=== PATIENT | female | born 1935 | race Caucasian/White ===

== ENCOUNTER 2019-01-17 09:24 | Inpatient (IN) ==
[2019-01-17] MEDS ORDERED: NS 1,000 ML IV ONE (10:00)
[2019-01-17] MEDS ORDERED: BENADRYL IV ONE (10:02)
[2019-01-17] MEDS ORDERED: CARDIZEM IV ONE (10:29)
[2019-01-17 10:39] LABS: URINE SOURCE CATH
[2019-01-17 10:45] LABS: BILIRUBIN URINE NEGATIVE (NEGATIVE); BLOOD URINE NEGATIVE (NEGATIVE); COLOR YELLOW; GLUCOSE URINE NEGATIVE (NEGATIVE); KETONE URINE NEGATIVE (NEGATIVE); LEUKOCYTES URINE NEGATIVE (NEGATIVE); NITRITE URINE NEGATIVE (NEGATIVE); PH URINE 5.5; PROTEIN URINE TRACE mg/dL (NEGATIVE); SP GRAVITY URINE 1.012; TURBIDITY URINE CLEAR (CLEAR); UROBILINOGEN URINE NORMAL (NORMAL)
[2019-01-17 10:46] LABS: BASO# 0.01 X1000 (0.0-0.2); BASO% 0.2 % (0.0-0.8); EOS# 0.08 X1000 (0.0-0.7); EOS% 1.2 % (0.0-10.0); HEMOGLOBIN 12.9 g/dL (12.0-16.0); IMM GRAN# 0.03 X1000 (0.0-0.04); IMM GRAN% 0.5 % (0.0-0.5); LYMPH# 1.75 X1000 (1.2-3.4); LYMPH% 26.9 % (20.5-51.1); MCH 29.4 PG (27-31); MCHC 33.1 g/dL (33-37); MCV 88.8 FL (81-99); MONO# 0.55 X1000 (0.11-0.59); MONO% 8.4 % (1.7-9.3); MPV 10.4 FL (7.4-10.4); NEUT# 4.09 X1000 (1.4-6.5); NEUT% 62.8 % (42.2-75.2); PLT 263 X1000 (130-400); RBC 4.39 XMIL (4.2-5.4); RDW 14.7 % (11.5-14.5); WBC 6.51 X1000 (4.8-10.8)
[2019-01-17 10:47] LABS: UR EPITHELIAL CELLS <10 /HPF (<10); URINE BACTERIA 1+ /HPF; URINE RBC <10 /HPF (<10); URINE WBC <10 /HPF (<10)
[2019-01-17 10:54] LABS: UR AMPHETAMINES QUAL NONE DETECTED (NONE DETECT); UR BARBITUATES QUAL NONE DETECTED (NONE DETECT); UR BENZODIAZEPIN QUAL PRESUMPTIVE POSITIVE (NONE DETECT); UR CANNABINOIDS QUAL NONE DETECTED (NONE DETECT); UR COCAINE QUAL NONE DETECTED (NONE DETECT); UR METHADONE QUAL NONE DETECTED (NONE DETECT); UR OPIATES QUAL NONE DETECTED (NONE DETECT); UR OXYCODONE QUAL NONE DETECTED (NONE DETECT); UR PCP QUAL NONE DETECTED (NONE DETECT)
[2019-01-17 11:03] LABS: ALB/GLOB RATIO 1.2; ALBUMIN 4.3 g/dL (3.5-5.0); CALCIUM 9.8 mg/dL (8.8-10.2); CREATININE 1.1 mg/dL (0.5-0.9); TOTAL BILIRUBIN 0.35 mg/dL (0.20-1.00); TOTAL PROTEIN 7.9 g/dL (6.3-8.3)
--- NOTE | 2019-01-17 11:07 | EKG Report ---
Test Performed on : 01/17/2019 09:38:31 AM Test Reason : ED. No order in [place] Blood Pressure : / mmHG Vent. Rate : 146 BPM Atrial Rate : 144 BPM P-R Int : 144 ms QRS Dur : 106 ms QT Int : 334 ms P-R-T Axes : 000 -54 087 degrees QTc Int : 520 ms Undetermined rhythm Left axis deviation Left ventricular hypertrophy with repolarization abnormality Abnormal ECG No previous ECGs available Unconfirmed Result
[2019-01-17 11:46] LABS: CK INDEX 2.7 (0.0-2.5); CK-MB 5.23 ng/mL (0.0-5.0)
--- NOTE | 2019-01-17 14:02 | PROVIDER DOCUMENTATION ---
This chart was entered by Blanca Howard Scribe, acting as scribe for Radha Carmona MD. HPI-Neurological Disorder - General Chief Complaint: Altered Mental Status Stated Complaint: UNRESPONSIVE Time Seen by Provider: 01/17/19 09:41 Source: EMS Allergies/Adverse Reactions: Patient Allergies Allergy/AdvReac Type Severity Reaction Status Date / Time Penicillins AdvReac RASH Verified 01/17/19 15:09 Home Medications: Home Medication List Medication Instructions Recorded Confirmed Last Taken Type Unobtainable [Home Meds 01/17/19 01/17/19 Unknown History Unobtainable] - History of Present Illness-Neuro Nature of Presenting Problem: Patient is a 83 year old female who presents to the ED via EMS with altered mental status. EMS states patient was found unresponsive. EMS reports trying to wake the patient on their arrival and she became agitated. EMS states history of xanax overdose. Severity: reports: mild Onset/Duration: reports: unsure Timing: reports: still present Context: reports: other (found unresponsive) Character of Altered Mental Status: reports: unresponsive Associated Symptoms: reports: denies symptoms Similar Symptoms Previously?: No Recently seen or treated by another doctor?: No Review of Systems - Adult - REVIEW OF SYSTEMS - ADULT ROS:: unobtainable per condition Constitutional: reports: no symptoms reported Eyes: reports: no symptoms reported Ears, Nose, Mouth & Throat: reports: no symptoms reported Cardiovascular: reports: no symptoms reported Respiratory: reports: no symptoms reported Gastrointestinal: reports: no symptoms reported Genitourinary: reports: no symptoms reported Musculoskeletal: reports: no symptoms reported Integumentary: reports: no symptoms reported Neurological: reports: no symptoms reported Psychiatric: reports: no symptoms reported Endocrine: reports: no symptoms reported Hematologic/Lymphatic: reports: no symptoms reported Allergic/Immunologic: reports: no symptoms reported All Other Systems: Reviewed and Negative Past History - Adult - PAST MEDICAL HISTORY-ADULT Review of Records: reports: Old Records Reviewed, Social history reviewed & non- contributory. Major Childhood Illnesses: reports: denies history Cardiovascular: reports: denies history Respiratory: reports: denies history Gastrointestinal: reports: denies history Obstetrical/Gynecological: reports: denies history Genitourinary: reports: denies history Musculoskeletal: reports: denies history Neurological: reports: denies history Psychiatric: reports: denies history Endocrine/Immune: reports: denies history Other Conditions: reports: denies history - PRIOR SURGERIES/PROCEDURES Surgical/Procedure History: reports: reviewed, not pertinent - IMMUNIZATION STATUS Childhood Immunizations: See Nurse Assessment Flu Vaccine: See Nurse Assessment - FAMILY HISTORY Family History: reviewed, not pertinent - SOCIAL HISTORY Smoking: non-smoker Substance Use: none/never Physical Exam- Neurological - Physical Exam-Neuro Initial Vital Signs Reviewed: Yes General Appearance: alert, no apparent distress, other (unresponsive) Eye Exam: bilateral eye: PERRL, EOMI HENMT: normocephalic/atraumatic, moist mucous membranes. negative: angioedema Head Injury: no evidence of injury. negative: active bleeding, lacerations Respiratory: chest non-tender, lungs clear, normal breath sounds. negative: crackles, rales, stridor Cardiovascular: normal peripheral pulses, regular rate, rhythm. negative: tach ycardia Abdominal Exam: normal bowel sounds, non tender, soft. negative: guarding Extremity: non-tender, normal inspection. negative: deformity patient support assistant Exam: other (unable to assess per patient's condition) Coordination/Gait: other (unable to assess per patient's condition) Motor/Sensory: other (unable to assess per patient's condition) Neurologic: other (unable to assess per patient's condition, patient was delirious, agitative and restless) Integumentary: normal color, normal turgor, warm/dry. negative: diaphoresis, jaundice, rash Psych/Mental Status: anxious, other (unresponsive) Progress - PLAN OF CARE/RESULTS Progress/Plan/Lab Results: Vital Signs - 8 hr 01/17/19 11:00 01/17/19 11:02 01/17/19 12:00 Pulse Rate 102 H 98 H 105 H Respiratory Rate 22 19 17 Blood Pressure 141/77 O2 Sat by Pulse Oximetry 94 L 95 95 01/17/19 12:02 01/17/19 12:38 01/17/19 12:47 Pulse Rate 107 H 95 H 92 H Respiratory Rate 26 H 27 H 30 H Blood Pressure 159/93 136/69 113/67 O2 Sat by Pulse Oximetry 93 L 94 L 95 01/17/19 13:00 01/17/19 13:02 01/17/19 14:00 Pulse Rate 130 H 142 H Respiratory Rate 17 24 Blood Pressure 155/100 O2 Sat by Pulse Oximetry 96 01/17/19 14:02 01/17/19 14:47 01/17/19 15:00 Pulse Rate Respiratory Rate Blood Pressure 158/121 152/103 O2 Sat by Pulse Oximetry 91 L 92 L 93 L 01/17/19 15:02 01/17/19 15:15 01/17/19 15:17 Pulse Rate Respiratory Rate Blood Pressure 157/99 127/77 126/75 O2 Sat by Pulse Oximetry 75 L 99 99 01/17/19 15:32 01/17/19 15:47 01/17/19 16:00 Pulse Rate Respiratory Rate Blood Pressure 138/78 134/65 O2 Sat by Pulse Oximetry 100 100 100 01/17/19 16:02 01/17/19 16:17 01/17/19 16:32 Pulse Rate Respiratory Rate Blood Pressure 130/81 120/87 114/69 O2 Sat by Pulse Oximetry 100 100 100 01/17/19 16:47 01/17/19 17:00 01/17/19 17:02 Pulse Rate 106 H Respiratory Rate Blood Pressure 118/96 121/67 O2 Sat by Pulse Oximetry 100 100 100 01/17/19 17:18 01/17/19 17:32 01/17/19 17:47 Pulse Rate 108 H 106 H Respiratory Rate Blood Pressure 126/93 131/79 129/100 O2 Sat by Pulse Oximetry 98 99 97 01/17/19 17:49 01/17/19 18:00 01/17/19 18:02 Pulse Rate Respiratory Rate Blood Pressure 144/87 127/87 O2 Sat by Pulse Oximetry 96 97 96 Laboratory Results - last 24 hr 01/17/19 01/17/19 01/17/19 09:49 09:49 10:21 WBC RBC Hgb Hct MCV MCH MCHC RDW Std Deviation Plt Count MPV Immature Gran % (Auto) Neut % (Auto) Lymph % (Auto) [place] % (Auto) Eos % (Auto) Baso % (Auto) Immature Gran # (Auto) Neut # (Auto) Lymph # (Auto) [place] # (Auto) Eos # (Auto) Baso # (Auto) Sodium 139 Potassium 4.0 Chloride 102 Carbon Dioxide 17 L Anion Gap 20 BUN 21 Creatinine 1.1 H Estimated GFR/1.73 m2 48 BUN/Creatinine Ratio 19 Glucose 186 H Calculated Osmolality 285 Calcium 9.8 Total Bilirubin 0.35 AST 26 ALT 17 Alkaline Phosphatase 73 Creatine Kinase 192 H Creatine Kinase Index 2.7 H CK-MB (CK-2) 5.23 H Troponin T Total Protein 7.9 Albumin 4.3 Globulin 3.6 Albumin/Globulin Ratio 1.2 Amylase 65 Lipase 28 Urine Source CATH Urine Color YELLOW Urine Turbidity CLEAR Urine pH 5.5 Ur Specific [place] 1.012 Urine Protein TRACE A Ur Glucose (Stick) NEGATIVE Ur Ketones (Stick) NEGATIVE Urine Blood NEGATIVE Urine Nitrite NEGATIVE Urine Bilirubin NEGATIVE Urobilinogen Dipstick NORMAL Urine Leukocytes NEGATIVE Urine WBC (Auto) <10 Urine RBC (Auto) <10 U Epithel Cells (Auto) <10 Urine Bacteria (Auto) 1+ Urine Opiates Screen NONE DETECTED Ur Oxycodone Screen NONE DETECTED Ur Methadone, Qual NONE DETECTED Ur Barbiturates Screen NONE DETECTED Ur Phencyclidine Scrn NONE DETECTED Ur Amphetamines Screen NONE DETECTED U Benzodiazepines Scrn PRESUMPTIVE POSITIVE A Urine Cocaine Screen NONE DETECTED U Cannabinoids Screen NONE DETECTED 01/17/19 01/17/19 10:21 10:21 WBC 6.51 RBC 4.39 Hgb 12.9 Hct 39.0 MCV 88.8 MCH 29.4 MCHC 33.1 RDW Std Deviation 14.7 H Plt Count 263 MPV 10.4 Immature Gran % (Auto) 0.5 Neut % (Auto) 62.8 Lymph % (Auto) 26.9 [place] % (Auto) 8.4 Eos % (Auto) 1.2 Baso % (Auto) 0.2 Immature Gran # (Auto) 0.03 Neut # (Auto) 4.09 Lymph # (Auto) 1.75 [place] # (Auto) 0.55 Eos # (Auto) 0.08 Baso # (Auto) 0.01 Sodium Potassium Chloride Carbon Dioxide Anion Gap BUN Creatinine Estimated GFR/1.73 m2 BUN/Creatinine Ratio Glucose Calculated Osmolality Calcium Total Bilirubin AST ALT Alkaline Phosphatase Creatine Kinase Creatine Kinase Index CK-MB (CK-2) Troponin T 0.026 Total Protein Albumin Globulin Albumin/Globulin Ratio Amylase Lipase Urine Source Urine Color Urine Turbidity Urine pH Ur Specific [place] Urine Protein Ur Glucose (Stick) Ur Ketones (Stick) Urine Blood Urine Nitrite Urine Bilirubin Urobilinogen Dipstick Urine Leukocytes Urine WBC (Auto) Urine RBC (Auto) U Epithel Cells (Auto) Urine Bacteria (Auto) Urine Opiates Screen Ur Oxycodone Screen Ur Methadone, Qual Ur Barbiturates Screen Ur Phencyclidine Scrn Ur Amphetamines Screen U Benzodiazepines Scrn Urine Cocaine Screen U Cannabinoids Screen Orders Category Date Time Status Convert to Saline Loc NOW Care 01/17/19 17:30 Active Saline Loc DIRECTED Care 01/17/19 10:03 Active Clear Liquid Diet Diet 01/17/19 17:36 Active NPO Diet 01/17/19 10:[address] HEAD W/O CONTRAST [CT] Stat Exams 01/17/19 12:43 Completed AMYLASE [CHEM] Stat Lab 01/17/19 10:21 Completed CBC WITH ELECTRONIC DIFF [HEME] Stat Lab 01/17/19 10:21 Completed CK PROFILE [SP CHEM] Stat Lab 01/17/19 10:21 Completed COMPREHENSIVE METABOLIC PANEL [CHEM] Stat Lab 01/17/19 10:21 Completed LIPASE [CHEM] Stat Lab 01/17/19 10:21 Completed TROPONIN T Stat Lab 01/17/19 10:21 Completed URINALYSIS W/POSS RFLX CULT [URINALYSIS] Stat Lab 01/17/19 09:49 Completed URINE DRUG SCREEN Stat Lab 01/17/19 09:49 Completed 0.9% Sodium Chloride Inj [Ns] 1,000 ml Med 01/17/19 10:00 Discontinued IV 999 mls/hr Atenolol [Tenormin] Med 01/17/19 17:51 Discontinued 25 mg PO NOW ONE Diltiazem [Cardizem] Med 01/17/19 10:29 Discontinued 10 mg IV NOW ONE Diphenhydramine [Benadryl] Med 01/17/19 10:02 Discontinued 25 mg IV NOW ONE Levetiracetam [Keppra] 500 mg Med 01/17/19 15:01 Discontinued 0.9% Sodium Chloride Inj [Ns] 100 ml IV NOW Lorazepam [Ativan] Med 01/17/19 15:01 Discontinued 1 mg IV NOW ONE Lorazepam [Ativan] Med 01/17/19 15:06 Discontinued 2 mg .ROUTE .STK-MED ONE EKG [EKG] Stat Ther 01/17/19 09:38 Draft EKG [EKG] Stat Ther 01/17/19 17:29 Ordered Transfer/Admit Order [TRANSFER] Routine Transfer 01/17/19 17:37 Ordered Result Diagrams: 01/17/19 10:21 01/17/19 10:21 - REASSESSMENT Reassessment #1 Time Reassessed: 12:36 Status: other (Dr. Carmona was call into patient's room by RN. Friend states patient became unresponsive and started shaking.) - EKG 1 Time of EKG reading by physician:: 09:38 EKG Read and Signed by:: Radha Carmona EKG Interpretation (*Must complete 3 of following elements*): Abnormal Rate: 146 Rhythm: undetermined rhythm [place]: left QRS: LVH (with repolarization abnormality) LA Interval: normal Comments: abnormal ECG - CT/MRI 1 CT Study: Head Impression: See EMR Report (Signed EXAM: CT HEAD W/O CONTRAST 01/17/2019 HISTORY: seizure, altered mental status TECHNIQUE: This exam was performed using automated exposure control, adjustment of mA or kV according to patient size, and/or use of iterative reconstruction technique. COMMENT: There are calcifications in the vertebral and basilar and internal carotid arteries bilaterally. There is some patchy lucency in the white matter of both hemispheres particularly in the marley radiata region on the left and around the atria of the lateral ventricles particularly on the right. There is a lacune in the external capsule on the left measuring 7 mm in greatest dimension. There is no evidence of mass effect, bleed, or abnormal extra-axial fluid collection. There is some hyperostosis frontalis interna. The visualized paranasal sinuses are clear. IMPRESSION: Chronic ischemic microvascular white matter changes. No evidence of acute disease. Electronically signed by Miguel Malave 01/17/2019 2:56 PM 01/17/19 1456 Interpreting Physician: Miguel Malave MD Dictated Date/Time: 01/17/19 1454 cc: Radha Carmona MD; Madhu Regalado MD) - CONSULTS/PCP/HOSPITALIST Notification #1 *Consult/PCP/Hospitalist*: Dr. Regalado Time Discussed: 15:59 Consult Disposition: Admit Departure - Departure Date of Disposition Decision: 01/17/19 Time of Disposition Decision: 16:00 DIAGNOSIS: Seizures Disposition: ADMITTED INPATIENT 09 Certified Medical Emergency: Emergent Condition: Good - Critical Care Note This patient required my direct & personal management of CC.: No Attestation - Physician/ DANIEL Attestation The physician spent face to face time with patient:: Yes Advanced Practice Provider documentation review:: Supervising physician onsite and consulted in the evaluation and care of this patient. The physician did have a face to face encounter with the patient. This chart was documented by the indicated scribe, (Blanca Howard Scribe) and accurately reflects the services I performed and decisions made by , Radha Carmona MD, as attested by the provider's signature.
--- NOTE | 2019-01-17 14:58 | Diag Imaging Result Doc PS360 ---
EXAM: CT HEAD W/O CONTRAST 01/17/2019 HISTORY: seizure, altered mental status TECHNIQUE: This exam was performed using automated exposure control, adjustment of mA or kV according to patient size, and/or use of iterative reconstruction technique. COMMENT: There are calcifications in the vertebral and basilar and internal carotid arteries bilaterally. There is some patchy lucency in the white matter of both hemispheres particularly in the marley radiata region on the left and around the atria of the lateral ventricles particularly on the right. There is a lacune in the external capsule on the left measuring 7 mm in greatest dimension. There is no evidence of mass effect, bleed, or abnormal extra-axial fluid collection. There is some hyperostosis frontalis interna. The visualized paranasal sinuses are clear. IMPRESSION: Chronic ischemic microvascular white matter changes. No evidence of acute disease. Electronically signed by Miguel Malave 01/17/2019 2:56 PM
[2019-01-17] MEDS ORDERED: ATIVAN IV ONE (15:01)
[2019-01-17] MEDS ORDERED: KEPPRA 500 MG in NS 100 ML IV ONE (15:01)
[2019-01-17] MEDS ORDERED: ATIVAN ONE (15:06)
[2019-01-17] MEDS ORDERED: TENORMIN PO ONE (17:51)
--- NOTE | 2019-01-17 20:38 | EKG Report ---
Test Performed on : 01/17/2019 8:05:39 PM Test Reason : NSR? Blood Pressure : / mmHG Vent. Rate : 097 BPM Atrial Rate : 097 BPM P-R Int : 200 ms QRS Dur : 078 ms QT Int : 340 ms P-R-T Axes : 074 069 037 degrees QTc Int : 431 ms Normal sinus rhythm. Septal infarct , age undetermined Abnormal ECG Confirmed by Storm GONZALEZ, [place] ([id number]) on 01/18/2019 7:00:50 AM
--- NOTE | 2019-01-17 21:53 | HISTORY AND PHYSICAL ---
CHIEF COMPLAINT: Found unresponsive at home. HISTORY OF PRESENT ILLNESS: Mrs. Aponte is an 83-year-old white female who lives at [facility]. She was brought by ambulance to the emergency room shortly before 9:30 a.m. today. Apparently, neighbors called an ambulance after hearing something. The paramedics reported she was unresponsive but became agitated and seemed delirious when stimulated and loaded onto the stretcher. On arrival in the emergency room, her initial EKG a narrow complex tachycardia with a rate of 156, which appears to be supraventricular tachycardia. She was given intravenous Cardizem and converted to a sinus rhythm. She was not on a monitor when I saw her, but her pulse was regular and normal. A repeat EKG is pending. Her daughter is present at the bedside and says that her mother has had severe anxiety for at least the past 47 years that she has known her and she has taken medicine for anxiety throughout this time. She has been followed in my office for the last 18 months or so and obviously suffers from some sort of personality disorder although her daughter says that she is not aware of any previous inpatient psychiatric hospitalizations. She actually had an appointment today to resume her [facility] with [facility] but was unable to make it because of coming here. In the past three months she has called my office 5 to 12 times daily to complain about abdominal pain and anxiety and insisting that she be switched from Ativan to Xanax or Xanax to Ativan. I have usually refused but she has been switched at least six times over the past three months and is never satisfied and the next day insists on returning. She also has frequent complaints about abdominal pain but refused multiple attempts to obtain a CT scan of her abdomen because she could not present with an empty stomach for the oral and IV contrast. Eventually, I managed to schedule a CT stone search without contrast which was unremarkable nearly a year ago. She had lost weight down to 106 pounds but has now regained weight to present weight of approximately 146. She also has a history of hypertension but rarely takes any medication. She states she is allergic to numerous blood pressure medicines and only tolerates labetalol. However, she takes this very irregularly. Two to three hours after arrival today , she was witnessed to have tonic clonic movement and was afterwards unresponsive. She required a mg of Ativan and 500 mg of Keppra intravenously to treat what the emergency room physician felt was a tonic clonic seizure. PAST MEDICAL HISTORY: Remarkable for hypertension, glaucoma, and a personality disorder yet undiagnosed. ALLERGIES: He is allergic to Amitiza, Carafate, Catapres, Demerol, Diovan, Levaquin, Macrodantin, Norvasc, penicillin, Tagamet, tetanus vaccines and tetanus toxoid, benazepril, and simethicone. HOME MEDICATIONS: Clonidine 0.1 mg p.r.n. for extremely high blood pressure, labetalol 100 mg one half tablet twice a day, but only taken p.r.n., Xanax 0.5 mg q four hours, maximum of 5 per day, and Zioptan eye drops in each eye for glaucoma. PAST SURGICAL HISTORY: Tonsillectomy in 1942, vaginal hysterectomy in 1973, laparoscopic cholecystectomy in 2011. SOCIAL HISTORY: She is but apparently from her . 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 She has never used tobacco or alcohol. REVIEW OF SYSTEMS: Today is unobtainable, but in the past has been generally positive for all systems. PHYSICAL EXAMINATION: GENERAL APPEARANCE: Elderly chronically ill appearing woman lying quietly on a stretcher. She is somewhat disheveled but clean and is initially somewhat sleepy but arouses easily. Her dentures are poorly fitting and results in some dysarthria. HEENT: Pupils equal, round and reactive to light. Extraocular movements intact. There is a slightly spongy area on the crown of her head just to the left side. It is not tender. NECK: Supple with no adenopathy, JVD, or thyromegaly. CHEST: The lungs are clear bilaterally. O2 saturation on one liter is 98%. CARDIAC: Regular rate and rhythm. Normal S1 and S2. No murmurs, gallops, or rubs. ABDOMEN: Soft and nontender with active bowel sounds and no rebound tenderness. NEUROLOGIC: She is responsive but frequently states nonsensical things. MUSCULOSKELETAL: She moves all of her arms and legs. Motor strength seems to be reasonably intact. DATABASE: Head CT shows chronic microvascular white matter changes as expected but no acute findings. Repeat EKG is pending. CBC is unremarkable. Chemistry profile with CO2 of 17, creatinine 1.1, glucose 186. CPK slightly elevated at 192 with 2.7% MB fraction but troponin is negative at 0.026. Liver function tests - amylase and lipase were normal. Urinalysis is unremarkable. Urine drug screen is positive only for benzodiazepines. ASSESSMENT: 1. New onset seizures. I have carefully reviewed her record and she has not received any Romazicon or other thing that might have precipitated this seizure. Her daughter says she has no previous history of seizures. 2. 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 TREATMENT PLAN: Will admit for observation and neurological consultation tomorrow. I will order an EEG. Will also begin Atenolol for her blood pressure and apparent tachycardia. Perhaps clonazepam would be a long acting medication and result in less frequent dosing and control her anxiety better than the Ativan or Xanax. Psychiatric consultation will be requested as well. cc: Madhu Regalado MD MTDD
[2019-01-17] MEDS: KLONOPIN PO SCH (22:00)
[2019-01-17] MEDS: LOVENOX SUBQ SCH (22:00)
[2019-01-18 06:04] LABS: CALCIUM 9.2 mg/dL (8.8-10.2); POTASSIUM 3.3 mmol/L (3.5-5.1)
[2019-01-18] MEDS: KLONOPIN PO SCH ×2 (09:19→20:47)
[2019-01-18] MEDS: KLOR-CON PO SCH ×2 (11:06→20:47)
--- NOTE | 2019-01-18 12:08 | EKG Report ---
Test Performed on : 01/18/2019 12:04:55 PM Test Reason : dyspnea Blood Pressure : / mmHG Vent. Rate : 078 BPM Atrial Rate : 078 BPM P-R Int : 180 ms QRS Dur : 092 ms QT Int : 376 ms P-R-T Axes : 054 038 029 degrees QTc Int : 428 ms Sinus rhythm. with sinus arrhythmia. with occasional premature ventricular complexes. T wave abnormality, consider anterior ischemia Abnormal ECG Confirmed by Storm GONZALEZ, [place] ([id number]) on 01/20/2019 9:00:38 AM
--- NOTE | 2019-01-18 12:17 | Diag Imaging Result Doc PS360 ---
CHEST-PORTABLE - 01/18/2019 INDICATION: dyspnea COMPARISON: 10/29/2017 FINDINGS: The lungs are normally expanded and clear. Heart size and mediastinal contours are normal. No pneumothorax or pleural effusion. IMPRESSION: Negative exam. Electronically signed by Aquilino Austin 01/18/2019 12:14 PM
--- NOTE | 2019-01-18 13:00 | CARDIOLOGY CONSULTATION ---
DATE: 01/18/2019 HISTORY OF PRESENT ILLNESS: An 83-year-old lady. Cardiology was consulted for abnormal cardiac enzymes. The patient is admitted with agitation, delirious, and also had witnessed tonic- clonic seizure in the emergency room. The patient's family was in the room. She had been having nausea and vomiting. Has severe anxiety personality disorder. From a cardiac standpoint, she does not complain of any chest pain, does not complain of having had palpitations. She lives [facility]. She was brought by ambulance to the emergency room. Apparently, neighbors called the ambulance services. Paramedics noted elevated heart rate, had given Cardizem in route. In the emergency room, electrocardiogram revealed sinus tachycardia, PACs were noted. There was no acute ST-T changes. Electrocardiogram done today revealed no acute ST-T changes, poor R wave progression, cannot rule out septal KS. Nonspecific ST-T changes. The patient does not complain of any chest pain. On arrival in the emergency room, sinus tachycardia was noted and she had significant anxiety over the last [address] Regalado and has been on multiple medications. She is also followed by [facility] staff. She also had abdominal discomfort, constipation, and has been on Ativan and Xanax. In the emergency room, she was witnessed to have tonic-clonic seizures after which she was unresponsive, received Ativan, and 500 mg of Keppra given intravenously. PAST MEDICAL HISTORY: Hypertension, glaucoma, personality disorder. ALLERGIES: She is allergic to Amitiza, Carafate, Catapres, Demerol, Diovan, Levaquin, Macrodantin, Norvasc, penicillin, Tagamet, tetanus toxoid, benazepril, simethicone. HOME MEDICATIONS: Clonidine 0.1 mg p.r.n., labetalol 100 mg half a tablet twice a day, Xanax, eyedrops for glaucoma. PAST SURGICAL HISTORY: Tonsillectomy, hysterectomy, laparoscopic cholecystectomy. PHYSICAL EXAMINATION: Vital signs: Blood pressure 102/56 to 93/55, jugular venous pressure was normal. First and second heart sounds were heard. There is no S3 gallop. Respiratory system: Normal air entry. There is no crepitations or rhonchi. Abdomen: Soft, nontender. Bowel sounds were heard. Central nervous system: Alert, and she was moving all 4 extremities. Extremities: Examination of extremities revealed no pedal edema. CT scan of her head revealed microvascular changes chronic. Cardiac enzymes: First set of cardiac enzymes, troponins was 0.026, subsequent troponin abnormal at 0.464. Sodium 144, potassium 3.3, BUN 19, creatinine 1.0. WBC 6.51, hemoglobin 12.9, hematocrit 39, platelet count of 263. Urine examination unremarkable. Chest x-ray is pending. ASSESSMENT AND PLAN: 1. Mrs. Janiya Aponte is an 83-year-old lady who has a history of hypertension, glaucoma, significant personality disorder, has been having episodes of personality disorder, was noted to have become agitated at the [facility] facility, EMT was called. She was noted to have tachycardia, was given Cardizem. Looking at her EKGs, I do not have the electrocardiogram to account for the supraventricular tachycardia, however, she has sinus tachycardia noted. In the emergency room, she had witnessed tonic-clonic seizures, was given Ativan and Keppra. She has been also having nausea. She has chronic abdominal discomfort, which she has had for over 20 years. From a cardiac standpoint, we will get an EKG, will get serial cardiac enzymes. This abnormal troponin could be secondary to rhabdomyolysis, will get a CK, CK-MB as well. Will get an echocardiogram to assess cardiac and valvular function. She denies any chest pain. 2. Hypertension. She is on atenolol. Has multiple allergies. Have not made any changes. Thank you for the consult. Will follow. cc: MD Madhu Gannon MD MTDD
[2019-01-18 14:08] LABS: CK INDEX 1.7 (0.0-2.5); CK-MB 10.22 ng/mL (0.0-5.0)
--- NOTE | 2019-01-18 15:30 | CONSULTATION ---
DATE OF CONSULTATION: 01/18/2019 HISTORY OF PRESENT ILLNESS: Ms. Aponte is 83 years old and she had an episode witnessed yesterday raising question of seizure. History from the patient today is that she does not recall the episode yesterday. She is not aware of any prior seizure. Family at the bedside confirms no prior seizure. One daughter reports witnessing episode yesterday. She reports patient was talking and began talking so rapidly, she could not be understood. She did not seem to be making sense. Suddenly, she vomited and then became rigid with arms flexed at the elbows and wrists, with generalized fine shaking, but not clonic activity in the limbs for about 2 minutes. There may have been urinary incontinence. Following that, she seemed sleepy with eyes half open and she gradually recovered over a few hours to her baseline level of alertness. Daughter present now reports a different daughter saw an earlier episode that she believes may have been similar, about 3 hours before the episode witnessed here in the hospital. The patient reports being told she had 2 strokes in the past. She cannot provide any precise information. She believes that 1 of these caused her to have some trouble with memory. She reports she does not know of a definite focal neurologic deficit with prior event. She reports chronic intense and intolerable abdominal pain which is relieved only by benzodiazepines. She has been taking benzodiazepines regularly for many years. Recently, she has had alprazolam. Her urine drug screen was positive for benzodiazepine on presentation this time. Other labs showed unremarkable chemistry. Noncontrast CT of the head showed old changes, but nothing remarkable for age. Vital sign record shows she has been afebrile. Heart rate was recorded 140s- 150s initially, 80s recently. Systolic blood pressure was 140s-150s initially, 90s-120s recently. EEG has been completed, with report pending. PHYSICAL EXAMINATION: On exam, Ms. Aponte is awake, alert, speaking rapidly, not forming her words well, mixing up some syllables. When I asked her to slow down, speech was more fluent and more easily understood. She was able to follow simple commands. She followed commands requiring right/left distinction and digit distinction. She did well with bedside testing of naming objects and naming parts of objects. She did well with repeating. I could not find a definite language deficit. Visual justin are full tested by confrontational finger counting. Extraocular movements are full. Facial motility is a little bit diminished bilaterally, but symmetric. Gag is intact. Tongue is midline. She can hear. Shoulder shrug is equal. Strength is normal in the arms. She seemed to have some guarding and discomfort and also trouble focusing attention, but I could not find definite motor deficit in the legs. She reports symmetric pinprick appreciation on brief testing and she was not attentive to more formal sensory testing. I did not test her gait. Plantar response is flexor on the left and more equivocal on the right. Reflexes are 1+ at the ankles and wrists symmetrically. Head is unremarkable. There is no meningismus. IMPRESSION: 1. Chronic anxiety, benzodiazepine dependence. 2. Recent episode of altered awareness with rigidity and shaking. This may have been clonic syncope. Generalized seizure is not excluded as etiology. I will check on the EEG. Thanks for asking Neurology to see Ms. Aponte. cc: MD Madhu Pendleton III, MD MTDD
--- NOTE | 2019-01-18 15:47 | ECHO REPORT ---
ORDER DATE: 01/18/2019 INTERPRETING PHYSICIAN: Charlie Mejia MD. ECHOCARDIOGRAPHIC MEASUREMENTS: 1. Interventricular septum 1.0. 2. Left ventricular posterior wall 1.0. 3. Diastolic diameter 4.2. 4. Left atrium 3.3. 5. Aorta 2.6. SUMMARY OF THE 2-DIMENSIONAL FINDINGS: 1. Aortic valve leaflets are trileaflet. 2. Mitral valve was normal. 3. Tricuspid valve was normal. 4. Pulmonic valve was normal. 5. Normal left ventricular cavity size. Estimated ejection fraction of 40 to 45 percent. There is anteroseptal and inferior wall hypokinesis. Mild hypokinesis of apex was also noted. 6. There is grade 1 diastolic dysfunction. 7. Peak velocity across the aortic valve less than 2 m/sec. There is no aortic stenosis. There is mild aortic regurgitation. There is mild mitral regurgitation. 8. Mild tricuspid regurgitation. Peak velocity across the tricuspid valve was 2.1 m/sec. 9. Pulmonary artery systolic pressure of 28 mmHg. 10. There is no pericardial effusion, or obvious intracardiac mass or thrombus seen. cc: MD Piil Gannon PA Russell T. Barr, MD
[2019-01-18] MEDS: PLAVIX PO SCH (18:24)
[2019-01-18] MEDS: ASPIRIN PO SCH (18:24)
[2019-01-18 18:47] LABS: CK INDEX 1.3 (0.0-2.5); CK-MB 8.24 ng/mL (0.0-5.0)
[2019-01-18] MEDS: LIPITOR PO SCH (20:47)
[2019-01-18] MEDS: LOVENOX SUBQ SCH ×2 (20:56→23:51)
[2019-01-18] MEDS: TENORMIN PO SCH ×2 (20:57→23:50)
[2019-01-19 03:48] LABS: CK INDEX 1.5 (0.0-2.5); CK-MB 10.08 ng/mL (0.0-5.0)
--- NOTE | 2019-01-19 06:25 | EKG Report ---
Test Performed on : 01/19/2019 05:30:11 AM Test Reason : dyspnea, elevated cardiac enzymes Blood Pressure : / mmHG Vent. Rate : 069 BPM Atrial Rate : 069 BPM P-R Int : 184 ms QRS Dur : 098 ms QT Int : 432 ms P-R-T Axes : 056 049 095 degrees QTc Int : 462 ms Normal sinus rhythm. T wave abnormality, consider anterior ischemia Abnormal ECG Confirmed by Storm GONZALEZ, [place] Fernandez ([id number]) on 01/22/2019 7:38:52 AM
[2019-01-19 06:32] LABS: AGAP 15; BUN 20 mg/dL (8-22); CALCIUM 9.1 mg/dL (8.8-10.2); CHLORIDE 110 mmol/L (98-107); COSMO 289; CREATININE 0.8 mg/dL (0.5-0.9); ESTIMATED GFR > 60; GLUCOSE 121 mg/dL (70-104); POTASSIUM 3.8 mmol/L (3.5-5.1); SODIUM 143 mmol/L (136-145); TCO2 18 mmol/L (25-35)
[2019-01-19] MEDS: ASPIRIN PO SCH ×2 (08:58→09:12)
[2019-01-19] MEDS: KLONOPIN PO SCH ×2 (08:58→22:55)
[2019-01-19] MEDS: KLOR-CON PO SCH ×5 (08:58→23:54)
[2019-01-19] MEDS: PLAVIX PO SCH (08:58)
--- NOTE | 2019-01-19 09:33 | CARDIOLOGY PROGRESS NOTE ---
DATE: 01/19/2019 CHIEF COMPLAINT: Mental status changes. Agitation. Abnormal EKG and abnormal cardiac enzymes. SUBJECTIVE: Ms. Aponte appears to be more calm today. She is asking to be discharged. She states that Xanax helps her to be calm. She denies having any abdominal or chest pain at this time. OBJECTIVE: Vital Signs: Blood pressure is 121/89, temperature 98.1, pulse 73, and respirations 16. General: She is awake and alert. She has some speech difficulty. At times her sentences do not quite make sense. She stated that she suffered a stroke in the past. HEENT: No cervical bruits. Respiratory: Chest sounds clear to auscultation and percussion. Cardiac: Heart sounds are regular and rhythmic. No gallop or murmur. Gastrointestinal. The abdomen is nontender. Extremities: The extremities show good pulses. No edema. Neurological: She follows commands, however, she seems to have some difficulty forming sentences and expressing herself. She has no obvious focal deficits in terms of strength of the upper or lower extremities. LABORATORY DATA: Blood Work: Sodium 143, potassium 3.8, BUN 20, and creatinine 0.8. Her CPKs showed elevation starting at 192 on 01/17/2019 at 10:21 in the morning and it has peak at midnight on 01/19/2019 at 0006 hours at 651 units. CK-MB fraction has also peaked at 10.08 ng/mL. Index is 1.5%. It was 2.7% yesterday. Troponins have slowly risen from 0.026 up to 0.464 on 01/18/2019 at 4:50 in the morning and they are going down to 0.251. Her EKG on the other hand has clearly changed and now it shows evidence of an anteroseptal OH. There is a T wave abnormality clearly noted in leads V1 and V2 consistent with an anteroseptal OH. There is a tiny Q wave in the inferior leads. Echocardiogram was read by Dr. Mejia yesterday shows hypokinesis of the apex, ejection fraction of 40% to 45%, grade 1 diastolic dysfunction, and mild tricuspid, mitral and aortic regurgitation. IMPRESSION: 1. The patient has suffered an acute anteroseptal myocardial infarction. She is asymptomatic now. She is not in obvious overt heart failure. Chest x-ray done on 01/18/2019 shows no congestion of the lungs. The patient is not dyspneic and she is not having ongoing angina. 2. History of a stroke. The patient appears to have had a lacunar stroke on the left side of the brain and that probably has affected her speech and that may be creating difficulty in communicating with her. She probably has some form of dysphasia. 3. Patient with a history of hypertension. 4. Left ventricular systolic dysfunction post myocardial infarction. RECOMMENDATION: At this time the patient has to be treated as any other case of myocardial infarction with a combination of enoxaparin, aspirin, Plavix, low dose beta sylvia, and statin drugs. We need to know what her LDL cholesterol is and observe her. The family has to decide what kind of post OH approach they would like for her. Because of her speech difficulty and her denial of her myocardial infarction she may not cooperate fully to proceed with an invasive cardiac evaluation which is probably what we would do under usual circumstances. We will discuss with Dr. Regalado whenever he is available and see what may be best for her from his viewpoint. In the meantime, we will continue to treat her in the standard fashion. Again, as I said she is not having any post OH CHF nor angina nor any evidence of arrhythmia thus far identified on her telemetry. We will continue to follow her. cc: MD Madhu Fulton MD
[2019-01-19] MEDS ORDERED: ATIVAN PO SCH (11:00)
--- NOTE | 2019-01-19 11:31 | PROGRESS NOTE ---
DATE: 01/19/2019 SUBJECTIVE: Ms. Aponte is a patient of Dr. Madhu Regalado. She is an 83-year-old who lives at [facility]. She was brought in by ambulance shortly after 9:30 on 01/17/2019. Neighbors called after hearing something. Paramedics reported she was unresponsive, became agitated, seemed delirious, and was loaded into the stretcher and brought to the emergency room. On arrival in the emergency room initial EKG showed a narrow complex tachycardia, rate of 156, appeared to be supraventricular tachycardia. Given IV Cardizem and converted to sinus rhythm. She was on a monitor. Pulse was regular, normal. Repeat EKG was pending. Daughter said that she had some severe anxiety for at least the past 47 years has known her, and taking medication for anxiety for this time. She had been followed by Dr. Regalado's office for the last 18 months or so, obviously suffers from sort of personality disorder, although her daughter says that she is not aware of any previous inpatient psychiatric hospitalizations. She was admitted to the hospital and appeared to have new onset seizures. She had not received any Romazicon or anything that might precipitate the seizure, and then severe anxiety disorder, suspected personality disorder. Her daughter is at the bedside said that this is all new. Dr. Mejia has evaluated. She has a history of hypertension, glaucoma, significant personality disorder, episodes of agitation while at [facility]. She had tachycardia, given Cardizem. Looking at the EKGs nothing to support supraventricular tachycardia. She did have sinus tachycardia. She had witnessed tonic-clonic seizures on Ativan and Keppra. She also was having some nausea. OBJECTIVE: General: Today she is awake. She is very anxious. She is concerned about MRI. She has been concerned that she is not taking her Ativan. She has almost pressured speech and, I think, some paranoid thoughts. Vitals: Temperature 98.1 degrees, pulse 70, respirations 18, blood pressure 121/89. HEENT: Pupils are equal and round. Lungs: Clear in all lung justin. Cardiovascular: Regular rhythm and rate without murmur or S3. Abdomen: Soft. Skin: Warm and dry. ASSESSMENT AND PLAN: 1. Chronic anxiety, benzodiazepine dependence. I think we are going to have to go back on some form of benzodiazepine. She is on Klonopin, but she has been on Ativan for a good length of time, and I am concerned about at this point, the withdrawal from benzodiazepines. She is very anxious, very paranoid, and I think that we ought to get her back on a scheduled dose, and what I am going to do at this point is give her 1 mg of Ativan q.6 hours scheduled and see if that will help improve. 2. History of hypercholesterolemia. cc: MD Madhu Maloney MD
[2019-01-19 11:43] LABS: CK INDEX 1.6 (0.0-2.5); CK-MB 10.11 ng/mL (0.0-5.0)
[2019-01-19] MEDS ORDERED: ATIVAN SCH (14:45)
[2019-01-19] MEDS: ATIVAN IV PRN ×2 (15:00→23:49)
[2019-01-19 18:48] LABS: CK INDEX 1.9 (0.0-2.5); CK-MB 10.28 ng/mL (0.0-5.0)
[2019-01-19] MEDS: LIPITOR PO SCH (21:23)
[2019-01-19] MEDS: LOVENOX SUBQ SCH ×2 (21:26→22:59)
[2019-01-19] MEDS: TENORMIN PO SCH (22:47)
[2019-01-20] MEDS: ATIVAN IV PRN ×3 (03:41→13:35)
[2019-01-20 06:54] LABS: CK INDEX 1.5 (0.0-2.5); CK-MB 9.55 ng/mL (0.0-5.0)
--- NOTE | 2019-01-20 08:49 | EKG Report ---
Test Performed on : 01/20/2019 06:25:19 AM Test Reason : dyspnea, elevated cardiac enzymes Blood Pressure : / mmHG Vent. Rate : 069 BPM Atrial Rate : 069 BPM P-R Int : 184 ms QRS Dur : 080 ms QT Int : 388 ms P-R-T Axes : 061 063 060 degrees QTc Int : 415 ms Normal sinus rhythm. Septal infarct , age undetermined Abnormal ECG Confirmed by Storm GONZALEZ, [place] Fernandez ([id number]) on 01/20/2019 9:01:27 AM
[2019-01-20] MEDS: KLOR-CON PO SCH ×2 (09:09→21:21)
[2019-01-20] MEDS: KLONOPIN PO SCH ×2 (09:10→21:21)
[2019-01-20] MEDS: ASPIRIN PO SCH (09:10)
[2019-01-20] MEDS: PLAVIX PO SCH (09:14)
--- NOTE | 2019-01-20 11:49 | CARDIOLOGY PROGRESS NOTE ---
DATE: 01/20/2019 CHIEF COMPLAINT: Confusion and agitation, abnormal cardiac enzymes. SUBJECTIVE: Ms. Aponte has been agitated through the night. Nurses have been struggling to keep her calm. She had complained of some "stomach upset," which she says is better now. I wonder if that was her angina or ischemic pain all along. OBJECTIVE: Blood pressure is 136/74, temperature 98.3, pulse 72, respirations 20. She is awake, alert. She follows some commands; however, she is talking constantly, and her wording or her sentences do not make a whole lot of sense at times. I think she is mixing words. HEENT is unremarkable. Chest shows clear breath sounds bilaterally. Heart sounds are regular and rhythmic. I do not hear gallop or murmur. Abdomen is nontender. Extremities showed decreased pulses. No peripheral edema. Neurologic: She follows some basic commands. Her speech is somewhat confusing with mixing of words at times and incomplete sentences. DIAGNOSTIC DATA: Her additional sets of CPKs showed the CPK went down to 531 at 5 p.m. yesterday, but then it bhavesh up again today at 617 units. Her MB fraction has peaked at 10.28 nanograms per mL yesterday and right now is down to 9.55. Her troponins are trending down at 0.124. EKG done today shows sinus rhythm with evidence of a septal infarct. IMPRESSION: 1. The patient presented with anteroseptal myocardial infarction. She is minimally symptomatic now. Her pain appears to be epigastric discomfort. 2. History of previous stroke. 3. History of hypertension. 4. Left ventricular dysfunction post myocardial infarction. 5. Agitation/confusion combined with underlying expressive aphasia. RECOMMENDATIONS: At this time, we will continue with the present regimen. We will discuss with Dr. Salvador Covarrubias who is covering for Dr. Regalado about giving her some strong sedation to allow her to rest. At this time, the patient is not in any condition to proceed with any additional cardiac testing. In the end, I believe we are just going to be treating her very conservatively. We will see how she does. cc: MD Madhu Fulton MD
--- NOTE | 2019-01-20 14:32 | PROGRESS NOTE ---
DATE: 01/20/2019 SUBJECTIVE: Mrs. Aponte has been very agitated, paranoid, and difficult to keep in the bed at times. She seems to be a little better now. I have decided to try and treat her with Ativan given her history of seizures, and she has had a long history of benzodiazepine use. I do not know if the paranoid affects are coming from benzodiazepine withdrawal, but we are going to try that. I also am going to try some Zyprexa at night. She is refusing to take p.o. medicine. I had discussions with the family on numerous occasions, but the family is unable to take care of her, and she is not go back to assisted living at this state. Discussed with Dr. Regalado. Possibly, she would benefit from an admission to [facility]. She is pleasant at the present time. She is confused. She knows that she is in the hospital. She knows who she is, but otherwise disoriented. In talking to family, it sounds like she has had some cognitive decline as well, so I suspect there is some underlying dementia that is contributing to this. PHYSICAL EXAMINATION TODAY: Vital Signs: Temp 98.3 degrees, pulse 66, respirations 18, blood pressure 106/63. HEENT: Pupils are equal and round. Lungs: Clear in all lung justin. Cardiovascular: Regular rhythm and rate without murmur or S3. Abdomen: Soft. Skin: Warm and dry. ASSESSMENT AND PLAN: 1. The patient presented with an anteroseptal myocardial infarction. She is minimally symptomatic. 2. Confusion and agitation. Suspect underlying cognitive decline. Her speech is clear, but she is confused. 3. Hypertension. 4. Left ventricular dysfunction, status post myocardial infarction. We will continue the Ativan intravenously, give her Zyprexa tonight 10 mg and do that at bedtime to see if that will help, and will proceed from there. cc: MD Madhu Maloney MD MTDD
[2019-01-20] MEDS ORDERED: NS 1,000 ML ONE (16:36)
[2019-01-20] MEDS: NS 1,000 ML IV SCH (16:41)
--- NOTE | 2019-01-20 16:56 | PROGRESS NOTE ---
DATE: 01/20/2019 ADDENDUM REPORT: She has not had any chest pain, but interesting are cardiac enzymes. The troponin was 0.124. CKs are elevated. She is still paranoid and very anxious and confused. We have tried to give her some more benzodiazepine. I am going to try Zyprexa to help with psychotic features and she gets very paranoid, scared and very agitated and tries to get out of the bed. She has a monitor called and she had atrial fibrillation and a little bit of flutter and then went back into sinus rhythm. Blood pressure a little on the low side. I am going to give her some fluids. We will try and back down a little bit on the Ativan. We will check some lab again in the morning. cc: MD Madhu Maloney MD
--- NOTE | 2019-01-20 16:59 | EKG Report ---
Test Performed on : 01/20/2019 3:26:20 PM Test Reason : new onset A-fib Blood Pressure : / mmHG Vent. Rate : 089 BPM Atrial Rate : 093 BPM P-R Int : 000 ms QRS Dur : 088 ms QT Int : 344 ms P-R-T Axes : 000 048 034 degrees QTc Int : 418 ms Atrial fibrillation. Nonspecific T wave abnormality Abnormal ECG When compared with ECG of 17-JAN-2019 20:05, Atrial fibrillation. has replaced Sinus rhythm. Criteria for Septal infarct are no longer present Nonspecific T wave abnormality has replaced inverted T waves in Inferior leads Nonspecific T wave abnormality now evident in Anterior leads Confirmed by Storm GONZALEZ, Wset Fernandez ([id number]) on 01/22/2019 7:40:34 AM
[2019-01-20] MEDS ORDERED: ZYPREXA IM SCH (21:00)
[2019-01-20] MEDS ORDERED: STERILE WATER INJ. ONE (21:16)
[2019-01-20] MEDS: LOVENOX SUBQ SCH (21:20)
[2019-01-20] MEDS: LIPITOR PO SCH (21:21)
[2019-01-20] MEDS: TENORMIN PO SCH (21:24)
[2019-01-21] MEDS: NS 1,000 ML IV SCH ×3 (04:55→16:00)
[2019-01-21 06:11] LABS: ALB/GLOB RATIO 0.9; CALCIUM 8.6 mg/dL (8.8-10.2); CREATININE 0.9 mg/dL (0.5-0.9); MAGNESIUM 1.9 mg/dL (1.5-2.7); POTASSIUM 3.4 mmol/L (3.5-5.1); TOTAL BILIRUBIN 0.39 mg/dL (0.20-1.00); TOTAL PROTEIN 6.4 g/dL (6.3-8.3)
[2019-01-21 06:53] LABS: TSH 3.12 uIUmL (0.27-4.20)
--- NOTE | 2019-01-21 09:48 | PROGRESS NOTE ---
DATE: 01/21/2019 Ms. Aponte is sitting up at the bedside, awake, alert, much more calm and appropriate than when I saw her 3 days ago. She answered simple questions correctly. She provided answers briskly and correctly regarding orientation, right/left distinction, digit distinction, naming objects, naming parts of objects. She had trouble interpreting a simile. Her only complaint to me was abdominal pain and need for Ativan. She told me she thinks there may be a plan to switch to Klonopin and she prefers to stick with Ativan. There is imaging evidence of old subcortical ischemic change. There may be history of clinical stroke in the past. I cannot find definite focal neurologic deficit, language deficit, vision deficit on bedside testing now. I do not think stroke is responsible for any of her recent history. There has been question of seizure, which was considered earlier. I do not think she has had any seizure or seizure-like behavior in the last few days. I would continue to manage without specific antiepilepsy drug. EEG was done, reviewed, and reported Monday but I do not see the typed report available in the file today. There was not definite epileptiform discharge or other concern for seizure. Thanks for asking neurology to see Ms. Aponte. cc: MD Madhu Pendleton III, MD
--- NOTE | 2019-01-21 09:52 | EEG REPORT ---
DATE: 01/17/2019 EEG NO: [id number] COMMENT: This is a digitally recorded EEG done portably at the bedside on an 83-year-old patient with recent episode raising question of seizure. FINDINGS: During waking, medium and higher amplitude 9 Hz posterior rhythm is present bilaterally and reacts at times to eye opening. Background contains polymorphic and rhythmic theta frequencies over the frontal and central regions symmetrically. Drowsing occurred briefly. Stage 2 sleep was not recorded. Photic stimulation did not significantly alter the record. Hyperventilation was not done. No definite epileptiform discharge was identified. Muscle contraction and movement artifacts were present at times but did not hinder interpretation. INTERPRETATION: Normal EEG. CORRELATION: The absence of epileptiform discharges on a single EEG does not exclude a clinical diagnosis of seizures, but there is nothing on this record that would prove recent episode was a seizure. cc: MD Madhu Pendleton III, MD [facility]
--- NOTE | 2019-01-21 11:11 | EKG Report ---
Test Performed on : 01/21/2019 11:06:05 AM Test Reason : dyspnea Blood Pressure : / mmHG Vent. Rate : 071 BPM Atrial Rate : 071 BPM P-R Int : 172 ms QRS Dur : 098 ms QT Int : 434 ms P-R-T Axes : 055 054 090 degrees QTc Int : 471 ms Normal sinus rhythm. Anterior infarct , age undetermined Abnormal ECG Confirmed by Storm GONZALEZ, [place] ([id number]) on 01/22/2019 7:41:11 AM
[2019-01-21] MEDS: PLAVIX PO SCH (11:27)
[2019-01-21] MEDS: KLONOPIN PO SCH ×2 (11:31→20:25)
[2019-01-21] MEDS: MILK OF MAGNESIA PO ONE ×2 (11:32→11:46)
[2019-01-21] MEDS: ASPIRIN PO SCH (11:32)
[2019-01-21] MEDS: ZYPREXA PO SCH ×2 (20:25→22:33)
[2019-01-21] MEDS: LIPITOR PO SCH (20:25)
[2019-01-21] MEDS: TENORMIN PO SCH (20:25)
[2019-01-21] MEDS: LOVENOX SUBQ SCH (20:25)
[2019-01-21] MEDS: PATIENT'S OWN MED BOTH EYES SCH (22:32)
[2019-01-22] MEDS ORDERED: SENOKOT PO ONE (08:03)
[2019-01-22] MEDS: ELIQUIS PO SCH ×2 (10:07→20:43)
[2019-01-22] MEDS: KLONOPIN PO SCH ×2 (10:07→20:43)
[2019-01-22] MEDS: TENORMIN PO SCH (20:42)
[2019-01-22] MEDS: LIPITOR PO SCH (20:42)
[2019-01-22] MEDS: ZYPREXA PO SCH (20:43)
[2019-01-22] MEDS: PATIENT'S OWN MED BOTH EYES SCH (20:55)
[2019-01-23] MEDS ORDERED: MILK OF MAGNESIA PO ONE (08:50)
[2019-01-23] MEDS: ELIQUIS PO SCH ×2 (09:24→20:32)
[2019-01-23] MEDS: KLONOPIN PO SCH ×2 (09:24→20:32)
[2019-01-23] MEDS: TIMOPTIC 0.5% OPH SOLUTION BOTH EYES SCH (09:25)
[2019-01-23] MEDS: ZYPREXA PO SCH (20:32)
[2019-01-23] MEDS: LIPITOR PO SCH (20:32)
[2019-01-23] MEDS: TENORMIN PO SCH (20:32)
[2019-01-23] MEDS: PATIENT'S OWN MED BOTH EYES SCH (20:40)
[2019-01-24] MEDS: KLONOPIN PO SCH (09:09)
[2019-01-24] MEDS: ELIQUIS PO SCH (09:09)
[2019-01-24] MEDS: TIMOPTIC 0.5% OPH SOLUTION BOTH EYES SCH (09:10)
--- NOTE | 2019-01-24 09:53 | DISCHARGE SUMMARY ---
ADMISSION DATE: 01/17/2019 DISCHARGE DATE: FINAL DIAGNOSIS: 1. Acute [id number] myocardial infarction probably secondary to number 2. 2. Paroxysmal atrial fibrillation with rapid ventricular response. 3. Chronic anxiety with paranoid features. 4. 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 5. Psychogenic abdominal pain. 6. History of hypertension. 7. History of glaucoma. PRESENT ILLNESS: Mrs. Aponte is an 83-year-old white female who lives at [facility]. She was brought by ambulance to the emergency room on the morning of admission. Apparently, her neighbors called an ambulance after hearing an unknown episode. The paramedics reported she was unresponsive but became agitated and seemed delirious when loaded onto the stretcher. On arrival in the emergency room, her initial EKG documented a narrow complex tachycardia with a rate of 156, possibly paroxysmal atrial fibrillation versus supraventricular tachycardia. She was given intravenous Cardizem and converted to a sinus rhythm. By the time I arrived, her daughter was present at the bedside and said that her mother had suffered from severe anxiety since she was born 47 years ago. 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 Her daughter is not aware of any previous inpatient psychiatric hospitalizations but she apparently was evaluated at [facility] approximately 2 years ago but did not return for further care. The admission history and physical has multiple other information regarding her chronic anxiety and chronic psychogenic abdominal pain. Soon after arrival, she was witnessed to have tonic-clonic movements and was unresponsive. She was treated with intravenous Ativan and Keppra by the emergency room physician. PHYSICAL EXAMINATION: General: Revealed a drowsy but easily aroused chronic ill-appearing elderly white female with some dysarthria due to poorly fitting dentures. Eyes: Pupils equal, round, and reactive to light. Neck: Supple with no JVD. Lungs: Clear. Cardiac exam: Regular rate and rhythm, no murmur or gallops. Abdomen: Soft and nontender with active bowel sounds. DATABASE: Admission CBC and chemistry profile are unremarkable. Head CT shows expected chronic microvascular white matter changes but no acute findings. HOSPITAL COURSE: She was admitted to the Medical floor. A Neurology consult and EEG was ordered and subsequent EEG was felt to be normal and Dr. Fry felt that she probably had a seizure but he did not think she had chronic epilepsy and did not need seizure medications unless there were further seizures. I feel she might have had a benzodiazepine withdrawal seizure or possibly hypoxic seizure related to her arrhythmia. Followup EKG showed some nonspecific T wave changes and her cardiac enzymes did become positive with a CPK peak of 651 units/L. Echocardiogram was ordered by Cardiology and her left ventricular ejection fraction was estimated at 40% to 45% with anterior and inferior wall hypokinesis. After careful consideration of her mental status, it was decided to treat her with beta-blockers and a statin and avoid further potentially invasive cardiac workup. Monday night after admission, she became acutely paranoid and refused to take oral medications and was given 1 dose of 10 mg of olanzapine intramuscularly and seemed quite improved the following day. She was continued on 5 mg olanzapine at bedtime, which I just reduced to 2.5 mg. I doubt this will need to be a long-term medication but I hope [facility] is able to evaluate her in rehab and assume responsibility for her anxiety medications as well. She was seen by physical therapy and felt to be an acceptable rehab candidate. She developed some physical deconditioning both prior to admission and worsened during the first several days of her hospital stay and she will need to have several weeks of physical therapy and occupational therapy before returning to [facility]. She is discharged in improved condition when a rehab bed is available. DISCHARGE MEDICATIONS: Atenolol 25 mg at bedtime, clonazepam 0.5 mg q.12 hours, atorvastatin 20 mg at bedtime, apixaban 2.5 mg twice a day, olanzapine 2.5 mg at bedtime, Timolol ophthalmic solution 1 drop in each eye before meals, Zioptan 1 drop in both eyes at bedtime. I will assume responsibility for her outpatient care after discharge from rehab. cc: Madhu Regalado MD [facility]
[2019-01-24 12:14] VITALS: BP 137/58
[2019-01-24] MEDS ORDERED: ZYPREXA PO SCH (21:00)
== END 2019-01-24 15:43 | DRG 281 ==
LOC: EDBD → ED 09:24 → 1N 18:05 → MERGE 18:05
PROVIDERS: ADMIT Internal Medicine; ATTEND Internal Medicine